=== PATIENT | female | born 1995 | race Caucasian/White ===

== ENCOUNTER 2018-01-22 20:37 | Emergency (ER) | payer OTHER ==
[2018-01-22] MEDS ORDERED: Ketorolac Tromethamine 30 MG/ML VIAL ONE (22:11)
== END 2018-01-22 22:30 | disposition home or self-care (01) ==
LOC: ERS 20:37
DX: M79.671 Pain in right foot (principal)
CPT/HCPCS: 96372; J1885

== ENCOUNTER 2018-04-26 21:37 | Emergency (ER) | payer OTHER ==
--- NOTE | 2018-04-26 22:44 | RAD ---
RIGHT FOOT THREE VIEWS: 04/26/18 HISTORY: 22-year-old female with history of right foot pain and swelling and redness, hardware placed on 01/19. Metal plate and screws stabilize the base of the first metatarsal and medial cuneiform. There is some soft tissue swelling anteriorly of the foot as well in the region of the great toe medially. IMPRESSION: Postoperative changes with stabilization of the base of the first metatarsal and medial cuneiform. Mi nimal soft tissue swelling of the great toe and anteriorly over the foot. No evidence for acute fract ure or dislocation. No overt bony erosive or destructive changes. There appears to be some minimal he terogeneous bone demineralization of the foot, in particular the great toe. If there is clinical conc tahir for osteomyelitis, followup nonemergent MRI examination of the foot might be considered. POS: DEBBIE
== END 2018-04-26 22:44 | disposition home or self-care (01) ==
LOC: ERS 21:37
DX: G89.18 Other acute postprocedural pain (principal); M79.671 Pain in right foot

== ENCOUNTER 2021-05-04 15:06 | Emergency (ER) | payer OTHER | END 2021-05-04 18:26 | disposition home or self-care (01) | LOC: ERS 15:06 | DX: G56.93 Unspecified mononeuropathy of bilateral upper limbs (principal) | CPT/HCPCS: 72040 ==